=== PATIENT | male | born 1955 | race Caucasian/White ===

== ENCOUNTER 2018-01-11 16:14 | Emergency (ER) | payer OTHER ==
[2018-01-11] MEDS ORDERED: ASPIRIN 81 MG TABLET, CHEWABLE PO ONE (16:15)
[2018-01-11 16:27] LABS: ABSOLUTE BASOPHILS # (AUTO) 0.1 10^3/uL (0.0-0.2); ABSOLUTE EOSINOPHILS # (AUTO) 0.1 10^3/uL (0.0-0.6); ABSOLUTE LYMPHOCYTES (AUTO) 2.2 10^3/uL (0.5-4.7); ABSOLUTE MONOCYTES (AUTO) 1.1 10^3/uL (0.1-1.4); ABSOLUTE NEUT (AUTO) 9.5 10^3/uL (1.7-8.2); BASOPHILS % (AUTO) 0.4 % (0-2); EOSINOPHILS % (AUTO) 0.6 % (0-6); HEMATOCRIT 50.1 % (37.9-51.0); HEMOGLOBIN 17.1 g/dL (13.5-17.0); MEAN CORPUSCULAR HEMOGLOBIN 31.1 pg (27.0-33.4); MEAN CORPUSCULAR HGB CONC 34.1 g/dL (32.0-36.0); MEAN CORPUSCULAR VOLUME 91 fl (80-97); MONOCYTES % (AUTO) 8.4 % (3-13); PLATELET COUNT 311 10^3/uL (150-450); RED BLOOD COUNT 5.49 10^6/uL (4.35-5.55); RED CELL DISTRIBUTION WIDTH 12.7 % (11.5-14.0); SEGMENTED NEUTROPHILS % (AUTO) 73.6 % (42-78); TOTAL CELLS COUNTED % (AUTO) 100 %
[2018-01-11] MEDS ORDERED: DILTIAZEM HCL INJ 25 MG/5 ML VIAL IV ONE (16:32)
--- NOTE | 2018-01-11 16:35 | ER Document Report ---
ED Cardiac - General Chief Complaint: Irregular Pulse Stated Complaint: HEARTRATE ISSUE Time Seen by Provider: 01/11/18 16:22 Mode of Arrival: Medic Information source: Patient, Relative, Emergency Med Personnel TRAVEL OUTSIDE OF THE [place] IN LAST 30 DAYS: No - HPI Patient complains to provider of: Palpitations Use of: denies: Alcohol, Amphetamines, Bath salts, Cocaine, Decongestants Was the onset of pain: Sudden When did pain begin: 1300 Is the pain a: New problem Chest pain location: Substernal Quality of pain: None Severity now: None Associated symptoms: Lightheaded, Palpitations, Weakness. denies: Diaphoresis, Nausea/vomiting, Shortness of breath, Syncope Exacerbated by: Activity Relieved by: Rest Similar symptoms previously: Yes - SEVERAL TIMES, INFREQUENT, RESOLVED WITHIN 15 -20 MIN. Recently seen / treated by doctor: Yes - TODAY, [facility], REFERRED TO [facility] - Related Data Allergies/Adverse Reactions: Penicillins Allergy (Verified 01/11/18 16:25) Past Medical History - General Information source: Patient - Social History Smoking Status: Former Smoker Cigarette use (# per day): No Chew tobacco use (# tins/day): Yes Smoking Education Provided: No Frequency of alcohol use: Rare Drug Abuse: None Lives with: Family Family History: CAD, Hypertension Patient has suicidal ideation: No Patient has homicidal ideation: No - Past Medical History Cardiac Medical History: Reports: Hx Hypertension Denies: Hx Atrial Fibrillation, Hx Coronary Artery Disease, Hx DVT, Hx Heart Attack, Hx Pulmonary Embolism Pulmonary Medical History: Reports: None EENT Medical History: Reports: None Neurological Medical History: Reports: None Endocrine Medical History: Reports: None. Denies: Hx Diabetes Mellitus Type 1, Hx Diabetes Mellitus Type 2 Renal/ Medical History: Reports: None Malignancy Medical History: Reports None GI Medical History: Reports: None Musculoskeltal Medical History: Reports None Psychiatric Medical History: Reports: None Surgical Hx: Negative Review of Systems - Review of Systems Constitutional: See HPI EENT: No symptoms reported Cardiovascular: See HPI Respiratory: No symptoms reported Gastrointestinal: No symptoms reported Genitourinary: No symptoms reported Musculoskeletal: No symptoms reported Skin: No symptoms reported Neurological/Psychological: See HPI Physical Exam - Vital signs Vitals: Pulse Ox 97 01/11/18 16:15 Interpretation: Tachycardic. No: Hypotensive, Tachypneic - General General appearance: Appears well, Alert In distress: None - HEENT Head: Normocephalic Eyes: Normal Conjunctiva: Normal Ears: Normal Nasal: Normal Mouth/Lips: Normal Mucous membranes: Normal Neck: No: Thyromegally - Respiratory Respiratory status: No respiratory distress Breath sounds: Normal - Cardiovascular Rhythm: Irregularly irregular, Tachycardia Heart sounds: Normal auscultation Murmur: No - Abdominal Inspection: Normal Bowel sounds: Normal - Extremities General upper extremity: Normal inspection General lower extremity: Normal inspection - Neurological Neuro grossly intact: Yes Cognition: Normal Orientation: AAOx4 - Psychological Associated symptoms: Normal affect, Normal mood - Skin Skin Temperature: Warm Skin Moisture: Dry Skin Color: Normal Skin Turgor: Elastic Course - Re-evaluation Re-evalutation: 01/11/18 21:13 Patient states he is asymptomatic at present. Cardiac rhythm remains in normal sinus. Vital signs are normal. Patient is stable for transport. Transport team is due to arrive in the next 5 minutes. - Vital Signs Vital signs: Temp Pulse Resp BP Pulse Ox 97.9 F 18 126/99 H 95 01/11/18 16:26 01/11/18 20:59 01/11/18 20:59 01/11/18 20:59 - Laboratory Result Diagrams: 01/11/18 15:50 01/11/18 15:50 Laboratory results interpreted by me: 01/11/18 01/11/18 15:50 15:50 WBC 13.0 H Hgb 17.1 H Absolute Neutrophils 9.5 H Sodium 146.1 H Chloride 109 H BUN 25 H Calcium 10.5 H - Diagnostic Test Radiology reviewed: Image reviewed, Reports reviewed - EKG Interpretation by Me EKG shows normal: ST-T Waves. abnormal: Sinus rhythm Rate: Tachycardia Rhythm: A.Fib - Consults DR. ANDREWS Time consulted: 19:26 Reason for consultation: 01/11/18 19:38 AGREES TO ACCEPT TRANSFER TO [facility]. Discharge - Discharge Clinical Impression: Atrial fibrillation with rapid ventricular response, Non-STEMI (non-ST elevated myocardial infarction) Condition: Good Disposition: [facility]
[2018-01-11 16:42] LABS: ALANINE AMINOTRANSFERASE 28 U/L (21-72); ALBUMIN 4.7 g/dL (3.5-5.0); ALKALINE PHOSPHATASE 86 U/L (38-126); ANION GAP 11 (5-19); ASPARTATE AMINO TRANSFERASE 26 U/L (17-59); BILIRUBIN,DIRECT 0.4 mg/dL (0.0-0.4); BILIRUBIN,TOTAL 1.1 mg/dL (0.2-1.3); BLOOD UREA NITROGEN 25 mg/dL (7-20); CALCIUM 10.5 mg/dL (8.4-10.2); CARBON DIOXIDE 26 mmol/L (22-30); CHLORIDE 109 mmol/L (98-107); CREATINE KINASE 94 U/L (55-170); GLUCOSE 94 mg/dL (75-110); SODIUM 146.1 mmol/L (137-145); TOTAL PROTEIN 7.4 g/dL (6.3-8.2)
--- NOTE | 2018-01-11 16:51 | RADIOLOGY REPORT (SQ) ---
EXAM DESCRIPTION: CHEST SINGLE VIEW COMPLETED DATE/TIME: 01/11/2018 4:35 pm REASON FOR STUDY: bed 2 cp COMPARISON: None. EXAM PARAMETERS: NUMBER OF VIEWS: One view. TECHNIQUE: Single frontal radiographic view of the chest acquired. RADIATION DOSE: NA LIMITATIONS: None. FINDINGS: LUNGS AND PLEURA: No opacities, masses or pneumothorax. No pleural effusion. MEDIASTINUM AND HILAR STRUCTURES: No masses. Contour normal. HEART AND VASCULAR STRUCTURES: Heart normal in size. Normal vasculature. BONES: No acute findings. HARDWARE: None in the chest. OTHER: No other significant finding. IMPRESSION: NO ACUTE RADIOGRAPHIC FINDING IN THE CHEST. TECHNICAL DOCUMENTATION: JOB ID: [id number] [employer]- All Rights Reserved Reading location - IP/workstation name: [email or web address]
[2018-01-11 16:57] LABS: CREATINE KINASE MB 2.75 ng/mL (<4.55); TROPONIN I 0.288 ng/mL
[2018-01-11] MEDS ORDERED: NORMAL SALINE 1000 ML IV ONE (17:27)
[2018-01-11] MEDS ORDERED: DILTIAZEM HCL/D5W 125 MG/125 ML RTUINJ IV PRN (17:29)
[2018-01-11] MEDS ORDERED: ENOXAPARIN SODIUM INJ 80 MG/0.8 ML DISP.SYRIN SUBCUT SCH (19:00)
--- NOTE | 2018-01-11 19:17 | RADIOLOGY REPORT (SQ) ---
EXAM DESCRIPTION: CTA CHEST COMPLETED DATE/TIME: 01/11/2018 7:06 pm REASON FOR STUDY: NEW ONSET A. FIB., R/O P.E. COMPARISON: 01/11/2018 TECHNIQUE: CT scan of the chest performed using helical scanning technique with dynamic intravenous contrast injection. Images reviewed with lung, soft tissue and bone windows. Reconstructed coronal and sagittal MPR images reviewed. Additional 3 dimensional post-processing performed to develop Maximal Intensity Projection images (VT P). All images stored on PACS. All CT scanners at this facility use dose modulation, iterative reconstruction, and/or weight based d osing when appropriate to reduce radiation dose to as low as reasonably achievable (ALARA). [facility]: Dose Right [facility]: CareDose [facility]: Dose Right [facility]: Teradose 4D [facility]: Genecure CONTRAST TYPE AND DOSE: contrast/concentration: Isovue 370.00 mg/ml; Total Contrast Delivered: 71.0 ml; Total Saline Delivered: 87.1 ml Contrast bolus optimized for the pulmonary arteries. Not diagnostic for the aorta. RENAL FUNCTION: BUN 25; creatinine 0.97 RADIATION DOSE: CT Rad equipment meets quality standard of care and radiation dose reduction techniq ues were employed. CTDIvol: 14.5 - 19.8 mGy. DLP: 553 mGy-cm. . LIMITATIONS: None. FINDINGS: LUNGS AND PLEURA: No masses, infiltrates, pneumothorax. No pleural effusions, calcificati ons. AORTA AND GREAT VESSELS: Ectatic ascending aorta. Contrast bolus not optimized for the aorta. HEART: No pericardial effusion. No significant coronary artery calcifications. PULMONARY ARTERIES: No emboli visualized in the main pulmonary arteries or the segmental branches. HILAR AND MEDIASTINAL STRUCTURES: No identified masses or abnormal nodes. HARDWARE: None in the chest. UPPER ABDOMEN: Limited exam. Partially imaged exophytic cyst, left kidney. THYROID AND OTHER SOFT TISSUES: No masses. No adenopathy. BONES: No acute or significant finding. 3D MIPS: Confirm above findings. OTHER: No other significant finding. IMPRESSION: NORMAL CTA OF THE CHEST. NO PULMONARY EMBOLI. COMMENT: Quality ID # [id number]: Final reports with documentation of one or more dose reduction techniques (e.g., Automated exposure control, adjustment of the mA and/or kV according to patient size, use of iterative reconstruction technique) TECHNICAL DOCUMENTATION: JOB ID: [id number] [employer]- All Rights Reserved Reading location - IP/workstation name: [email or web address]
--- NOTE | 2018-01-11 19:23 | EKG REPORT ---
SEVERITY:- ABNORMAL ECG - ATRIAL FIBRILLATION, V-RATE 90-156 MULTIFORM VENTRICULAR PREMATURE COMPLEXES : Confirmed by: Minda Berrios 11-Jan-2018 19:22:08
[2018-01-11] MEDS ORDERED: ATORVASTATIN CALCIUM 20 MG TABLET PO ONE (19:29)
[2018-01-11] MEDS ORDERED: METOPROLOL TARTRATE 25 MG TABLET PO ONE (19:29)
[2018-01-11 21:18] VITALS: BP 123/87
--- NOTE | 2018-01-12 10:49 | EKG REPORT ---
SEVERITY:- NORMAL ECG - SINUS RHYTHM : Confirmed by: Minda Berrios 12-Jan-2018 10:48:44
== END 2018-01-11 21:25 | disposition short-term general hospital (02) ==
LOC: ER 16:14
DX: I48.91 Unspecified atrial fibrillation (principal); I21.4 Non-ST elevation (NSTEMI) myocardial infarction; I10 Essential (primary) hypertension; R42 Dizziness and giddiness; R53.1 Weakness; Z88.0 Allergy status to penicillin; Z87.891 Personal history of nicotine dependence; Z82.49 Family history of ischemic heart disease and other diseases of the circulatory system
CPT/HCPCS: 93005; 96376; 99285; 96372; 96365; 96366; 36415; 82553; 82550; 85025; 80053; 84484; 71045; 71275; 93010; J3490 ×2; J7030; J1650

== ENCOUNTER 2019-07-05 08:46 | Emergency (ER) | payer OTHER ==
--- NOTE | 2019-07-05 09:21 | ER Document Report ---
ED GI/ - General Chief Complaint: Urinary Problem Stated Complaint: BLOOD IN URINE Time Seen by Provider: 07/05/19 09:02 Mode of Arrival: Ambulatory Information source: Patient Notes: History of Present Illness Time: Chief Complaint: Flank pain 63 years old male presents today with right flank pain as well as hematuria x3 days. Denies any dysuria frequency urgency. Denies any fever chills or other constitutional symptoms denies any weaknesses. He is on Xarelto for atrial fibrillation, he stopped taking them for 2 days. Initial urine is bloody subsequent urine clears up. History obtained from patient Symptoms began: Today Onset: Gradual Timing: Intermittent Quality: ``pain Intensity: Severe Location: Flank Migration: None Radiation: None Mechanism: None Aggravating factors: None Relieving factors: None Denies significant traumatic injury Denies weakness, numbness, incontinence Denies IV drug use Denies trouble with urination Review of Systems All other systems negative as reviewed. CONSTITUTIONAL No fever. EYES No eye pain. ENT No URI symptoms, No sore throat, No ear pain. CARDIOVASCULAR No chest pain, No palpitations, No edema. RESPIRATORY No Cough, No SOB, No wheezing. GASTROINTESTINAL No abdominal pain, No diarrhea, No vomiting, No constipation, No melena, No rectal bleeding. GENITOURINARY No UTI symptoms, No bleeding. MUSCULOSKELETAL + flank pain. SKIN No Rash. NEUROLOGIC No Headache, No recent seizures, No paralysis, No parathesias. Physical Exam CONSTITUTIONAL Vital signs reviewed, comfortable, Alert and oriented X 3. HEAD Atraumatic, Normal cephalic. EYES No discharge from eyes, Sclera are not injected, Extraocular muscles intact, Conjunctiva are normal. ENT Ears normal to inspection, Nose examination normal, Oropharynx normal, Mucous membranes pink, moist, normal in color. NECK Normal ROM, No jugular venous distention, No meningeal signs, No carotid bruit. RESPIRATORY/CHEST Chest is non-tender, Breath sounds normal, No respiratory distress. CARDIOVASCULAR RRR, Heart sounds normal. ABDOMEN Abdomen is non-tender, No masses, Bowel sounds normal, No distension, No peritoneal signs. BACK Normal inspection. no focal bony tenderness, no CVA tenderness, no soft tissue tenderness, negative straight leg test bilaterally, bilateral 2+ knee deep tendon reflexes. UPPER EXTREMITY Inspection normal, No cyanosis/clubbing/edema, 2+ radial pulses. LOWER EXTREMITY Inspection normal, No cyanosis/clubbing/edema, 2+ femoral pulses. NEURO Motor exam normal, Sensory exam normal. SKIN Skin is warm and dry, No rash. PSYCHIATRIC Normal affect. TRAVEL OUTSIDE OF THE [place] IN LAST 30 DAYS: No - HPI Notes: 07/05/19 09:20 Dictated - Related Data Allergies/Adverse Reactions: Penicillins Allergy (Verified 07/05/19 08:59) Past Medical History - Social History Smoking Status: Former Smoker Chew tobacco use (# tins/day): Yes Frequency of alcohol use: Social Drug Abuse: None Lives with: Family Family History: CAD, Hypertension Patient has suicidal ideation: No Patient has homicidal ideation: No - Past Medical History Cardiac Medical History: Reports: Hx Atrial Fibrillation, Hx Hypertension Denies: Hx Coronary Artery Disease, Hx DVT, Hx Heart Attack, Hx Pulmonary Embolism Endocrine Medical History: Denies: Hx Diabetes Mellitus Type 1, Hx Diabetes Mellitus Type 2 Renal/ Medical History: Reports: Hx Kidney Stones. Denies: Hx Peritoneal Dialysis Review of Systems - Review of Systems Notes: Dictated Physical Exam - Vital signs Vitals: Temp Pulse Resp BP Pulse Ox 97.5 F 58 L 16 135/90 H 100 07/05/19 08:51 07/05/19 08:51 07/05/19 08:51 07/05/19 08:51 07/05/19 08:51 - Notes Notes: Dictated Course - Vital Signs Vital signs: Temp Pulse Resp BP Pulse Ox 97.5 F 58 L 16 135/90 H 100 07/05/19 08:51 07/05/19 08:51 07/05/19 08:51 07/05/19 08:51 07/05/19 08:51 - Laboratory Result Diagrams: 07/05/19 09:45 07/05/19 09:45 Laboratory results interpreted by me: 07/05/19 09:45 Urine Blood LARGE H - Diagnostic Test Radiology reviewed: Reports reviewed - CT of the abdomen pelvis without contrast shows multiple intrarenal stones on both sides. With prostate enlargement. Discharge - Discharge Clinical Impression: Renal calculus, bilateral, Enlarged prostate Hematuria Qualifiers: Hematuria type: gross Qualified Code(s): R31.0 - Gross hematuria Condition: Fair Disposition: HOME, SELF-CARE Instructions: Hematuria ([facility]), Kidney Stone ([facility]) Prescriptions: Tamsulosin HCl [Flomax 0.4 mg Cap.sr] 0.4 mg PO DAILY #30 cap.sr.24h
[2019-07-05 09:56] LABS: ABSOLUTE EOSINOPHILS # (AUTO) 0.1 10^3/uL (0.0-0.6); ABSOLUTE LYMPHOCYTES (AUTO) 1.2 10^3/uL (0.5-4.7); ABSOLUTE MONOCYTES (AUTO) 0.5 10^3/uL (0.1-1.4); ABSOLUTE NEUT (AUTO) 4.7 10^3/uL (1.7-8.2); BASOPHILS % (AUTO) 0.7 % (0-2); EOSINOPHILS % (AUTO) 1.4 % (0-6); HEMATOCRIT 48.1 % (37.9-51.0); HEMOGLOBIN 16.4 g/dL (13.5-17.0); MEAN CORPUSCULAR HEMOGLOBIN 31.5 pg (27.0-33.4); MEAN CORPUSCULAR HGB CONC 34.2 g/dL (32.0-36.0); MEAN CORPUSCULAR VOLUME 92 fl (80-97); MONOCYTES % (AUTO) 8.1 % (3-13); PLATELET COUNT 254 10^3/uL (150-450); RED BLOOD COUNT 5.22 10^6/uL (4.35-5.55); RED CELL DISTRIBUTION WIDTH 13.1 % (11.5-14.0); SEGMENTED NEUTROPHILS % (AUTO) 70.8 % (42-78); TOTAL CELLS COUNTED % (AUTO) 100 %; WHITE BLOOD COUNT 6.6 10^3/uL (4.0-10.5)
--- NOTE | 2019-07-05 09:56 | RADIOLOGY REPORT (SQ) ---
EXAM DESCRIPTION: CT ABD/PELVIS NO ORAL OR IV COMPLETED DATE/TIME: 07/05/2019 9:35 am REASON FOR STUDY: Renal stone protocol COMPARISON: None. TECHNIQUE: CT scan of the abdomen and pelvis performed without intravenous or oral contrast. Images reviewed with lung, soft tissue, and bone windows. Reconstructed coronal and sagittal MPR images revi ewed. All images stored on PACS. All CT scanners at this facility use dose modulation, iterative reconstruction, and/or weight based d osing when appropriate to reduce radiation dose to as low as reasonably achievable (ALARA). [facility]: Dose Right [facility]: CareDose [facility]: Dose Right [facility]: Teradose 4D [facility]: Smart [employer] RADIATION DOSE: CT Rad equipment meets quality standard of care and radiation dose reduction techniq ues were employed. CTDIvol: 6.6 mGy. DLP: 363 mGy-cm.mGy. LIMITATIONS: None. FINDINGS: LOWER CHEST: No acute findings. NON-CONTRASTED LIVER, SPLEEN, ADRENALS: Evaluation is limited due to the absence of intravenous contr ast. The liver morphology is non cirrhotic. There is no CT evidence of hepatic steatosis. The sple en is normal in size. There is no abnormality of the adrenal glands. PANCREAS: No acute abnormality of the pancreas. GALLBLADDER: No abnormality that is apparent on CT. RIGHT KIDNEY AND URETER: There is a 4 x 3 mm calculus within the right renal pelvis; there is no asso ciated hydronephrosis, hydroureter or ureterolithiasis. Evaluation of the hypodense lesions within th e posterior cortex of the upper and lower poles is limited due to the absence of intravenous contrast but based on the internal attenuation of the lesions (less than 10 Hounsfield units) the favored dif ferential considerations are simple renal cysts. LEFT KIDNEY AND URETER: There are several caliceal calculi that measure up to 3 mm in diameter; ther e is no associated hydronephrosis, hydroureter or ureterolithiasis. There are also several cortical- based hypodense lesions that measure up to 3.3 x 2.3 cm ; evaluation of these lesions is limited due to the absence of intravenous contrast but as stated above based on the internal attenuation of the l esions the favored differential considerations are simple renal cysts. AORTA AND RETROPERITONEUM: No aneurysmal dilatation of the abdominal aorta or retroperitoneal adenopa thy. BOWEL AND PERITONEAL CAVITY: No evidence of obstruction, bowel wall thickening or pericolonic/ perien teric inflammation. No mesenteric adenopathy, mesenteric mass or free intraperitoneal fluid/gas. APPENDIX: Normal. PELVIS, BLADDER, AND ABDOMINAL WALL:The prostate gland is enlarged and heterogeneous and contains num erous calcifications. There is no pelvic adenopathy or free fluid. The urinary bladder is distended and normal in appearance ; there is no urinary bladder calculus. There is a miniscule fat containing umbilical hernia BONES: No acute findings. OTHER: No other finding. IMPRESSION: 1. 4 x 3 mm calculus in the right renal pelvis without associated hydronephrosis, hydro ureter or ureterolithiasis. 2. Several caliceal calculi in the left kidney that measure up to 3 mm in diameter without associate d hydronephrosis, hydroureter or ureterolithiasis. 3. Prostatomegaly. COMMENT: Quality ID # [id number]: Final reports with documentation of one or more dose reduction techniques (e.g., Automated exposure control, adjustment of the mA and/or kV according to patient size, use of iterative reconstruction technique) TECHNICAL DOCUMENTATION: JOB ID: [id number] [employer]- All Rights Reserved Reading location - IP/workstation name: [email or web address]
[2019-07-05 10:05] LABS: APPEARANCE,URINE CLEAR; BILIRUBIN,URINE NEGATIVE (NEGATIVE); COLOR,URINE STRAW; GLUCOSE, URINE NEGATIVE (NEGATIVE); KETONES,URINE NEGATIVE (NEGATIVE); LEUKOCYTE ESTERASE,URINE NEGATIVE (NEGATIVE); NITRITE,URINE NEGATIVE (NEGATIVE); PROTEIN,URINE NEGATIVE (NEGATIVE); URINE SPECIFIC GRAVITY 1.002; UROBILINOGEN,URINE NEGATIVE mg/dL (<2.0)
[2019-07-05 10:22] LABS: ALBUMIN 4.5 g/dL (3.5-5.0); ALKALINE PHOSPHATASE 70 U/L (38-126); ANION GAP 7 (5-19); ASPARTATE AMINO TRANSFERASE 26 U/L (17-59); BILIRUBIN,DIRECT 0.1 mg/dL (0.0-0.4); BILIRUBIN,TOTAL 1.3 mg/dL (0.2-1.3); BLOOD UREA NITROGEN 16 mg/dL (7-20); CALCIUM 9.5 mg/dL (8.4-10.2); CARBON DIOXIDE 30 mmol/L (22-30); CHLORIDE 102 mmol/L (98-107); GLUCOSE 104 mg/dL (75-110); POTASSIUM 4.1 mmol/L (3.6-5.0); TOTAL PROTEIN 7.3 g/dL (6.3-8.2)
[2019-07-05 12:17] VITALS: BP 126/81
== END 2019-07-05 12:15 | disposition home or self-care (01) ==
LOC: ER 08:46
DX: N20.0 Calculus of kidney (principal); N40.0 Benign prostatic hyperplasia without lower urinary tract symptoms; R31.0 Gross hematuria; R10.9 Unspecified abdominal pain; I48.91 Unspecified atrial fibrillation; I10 Essential (primary) hypertension; Z88.0 Allergy status to penicillin
CPT/HCPCS: 36415; 74176; 80053; 81001; 85025; 99284

== ENCOUNTER 2020-10-17 19:24 | Emergency (ER) | payer OTHER, MEDICARE ==
[2020-10-17 19:54] LABS: ABSOLUTE EOSINOPHILS # (AUTO) 0.1 10^3/uL (0.0-0.6); ABSOLUTE LYMPHOCYTES (AUTO) 1.6 10^3/uL (0.5-4.7); ABSOLUTE MONOCYTES (AUTO) 0.7 10^3/uL (0.1-1.4); ABSOLUTE NEUT (AUTO) 5.2 10^3/uL (1.7-8.2); BASOPHILS % (AUTO) 0.4 % (0-2); EOSINOPHILS % (AUTO) 1.3 % (0-6); HEMATOCRIT 45.6 % (37.9-51.0); HEMOGLOBIN 15.7 g/dL (13.5-17.0); LYMPHOCYTES % (AUTO) 21.3 % (13-45); MEAN CORPUSCULAR HEMOGLOBIN 31.4 pg (27.0-33.4); MEAN CORPUSCULAR HGB CONC 34.4 g/dL (32.0-36.0); MEAN CORPUSCULAR VOLUME 91 fl (80-97); MONOCYTES % (AUTO) 8.9 % (3-13); PLATELET COUNT 243 10^3/uL (150-450); RED BLOOD COUNT 4.99 10^6/uL (4.35-5.55); RED CELL DISTRIBUTION WIDTH 12.6 % (11.5-14.0); SEGMENTED NEUTROPHILS % (AUTO) 68.1 % (42-78); TOTAL CELLS COUNTED % (AUTO) 100 %; WHITE BLOOD COUNT 7.6 10^3/uL (4.0-10.5)
--- NOTE | 2020-10-17 19:56 | RADIOLOGY REPORT (SQ) ---
EXAM DESCRIPTION: CHEST SINGLE VIEW IMAGES COMPLETED DATE/TIME: 10/17/2020 7:46 pm REASON FOR STUDY: chest pain, SVT COMPARISON: None. EXAM PARAMETERS: NUMBER OF VIEWS: One view. TECHNIQUE: Single frontal radiographic view of the chest acquired. RADIATION DOSE: NA LIMITATIONS: None. FINDINGS: LUNGS AND PLEURA: No opacities, masses or pneumothorax. No pleural effusion. MEDIASTINUM AND HILAR STRUCTURES: No masses. Contour normal. HEART AND VASCULAR STRUCTURES: Heart normal in size. Normal vasculature. BONES: No acute findings. HARDWARE: None in the chest. OTHER: No other significant finding. IMPRESSION: NO ACUTE RADIOGRAPHIC FINDING IN THE CHEST. TECHNICAL DOCUMENTATION: JOB ID: [id number] [employer]- All Rights Reserved Reading location - IP/workstation name: [email or web address]
[2020-10-17 20:01] LABS: ALBUMIN 3.9 g/dL (3.5-5.0); ALKALINE PHOSPHATASE 76 U/L (38-126); ASPARTATE AMINO TRANSFERASE 27 U/L (17-59); BILIRUBIN,DIRECT 0.2 mg/dL (0.0-0.4); BILIRUBIN,TOTAL 0.9 mg/dL (0.2-1.3); BLOOD UREA NITROGEN 20 mg/dL (7-20); CARBON DIOXIDE 29 mmol/L (22-30); CHLORIDE 106 mmol/L (98-107); CREATINE KINASE 48 U/L (55-170); GLUCOSE 121 mg/dL (75-110); POTASSIUM 3.7 mmol/L (3.6-5.0); TOTAL PROTEIN 6.4 g/dL (6.3-8.2)
[2020-10-17 20:08] LABS: ANION GAP 4 (5-19)
[2020-10-17 20:13] LABS: CREATINE KINASE MB 0.58 ng/mL (<4.55)
[2020-10-17 20:14] LABS: TROPONIN I < 0.012 ng/mL
--- NOTE | 2020-10-17 22:11 | ER Document Report ---
ED Cardiac - General Chief Complaint: Chest Pain Stated Complaint: WEAKNESS Time Seen by Provider: 10/17/20 20:54 Primary Care Provider: GEORGE,TORRIE [Primary Care Provider] - Follow up as needed TRAVEL OUTSIDE OF THE [place] IN LAST 30 DAYS: No - HPI Notes: Patient is a 65-year-old male with a past medical history of atrial fibrillation on lisinopril and metoprolol who presents with an episode of SVT. Patient states that he had 6 cups of coffee today which is more than normal. He also had a large sweet tea today which is more caffeine than he normally drinks. Patient states that around 4, he began feeling burning in his chest. They called EMS and he was found to have a heart rate of 220 and was in SVT. Patient was given 6 mg of adenosine and converted. He has been in sinus rhythm since he was given the medicine. His vitals are stable. He is denying any complaints at this time. Patient does have a loop recorder and his recordings get sent to [facility] cardiology. He has an appointment with his claim analyst on Thursday. - Related Data Allergies/Adverse Reactions: Penicillins Allergy (Verified 07/05/19 08:59) Home Medications: Lisinopril Past Medical History - General Information source: Patient - Social History Smoking Status: Former Smoker Family History: CAD, Hypertension - Past Medical History Cardiac Medical History: Reports: Hx Atrial Fibrillation, Hx Hypertension Denies: Hx Coronary Artery Disease, Hx DVT, Hx Heart Attack, Hx Pulmonary Embolism Endocrine Medical History: Denies: Hx Diabetes Mellitus Type 1, Hx Diabetes Mellitus Type 2 Renal/ Medical History: Reports: Hx Kidney Stones. Denies: Hx Peritoneal Dialysis Review of Systems - Review of Systems Notes: CONSTITUTIONAL: No fever, fatigue or weight loss. SKIN: No rash. HENT: No congestion, ear pain, or sore throat. CARDIOVASCULAR: No chest pain or edema. RESPIRATORY: No cough, shortness of breath, congestion, or wheezing. GASTROINTESTINAL: No abdominal pain, nausea, vomiting, bloody stools or diarrhea. MUSCULOSKELETAL: No joint pain or swelling. NEUROLOGIC: No seizures. No headache, focal weakness or sensory changes. HEMATOLOGIC: No unusual bruising or bleeding. PSYCHIATRIC: No depression or anxiety. Physical Exam - Vital signs Vitals: Temp Resp BP Pulse Ox 98.1 F 14 133/81 H 97 10/17/20 19:28 10/17/20 19:28 10/17/20 19:28 10/17/20 19:28 - General General appearance: Appears well In distress: None Notes: VITAL SIGNS: Within normal limits. GENERAL: No acute distress, non-toxic appearance. HEAD: Normal with no signs of head trauma. EYES: Conjunctiva normal, no discharge. EARS: Hearing grossly intact. NOSE: Normal. NECK: Normal range of motion, no tenderness, supple, no lymphadenopathy, No adenopathy, no JVD. CHEST: Clear breath sounds bilaterally. No wheezes, rales, or rhonchi. CARDIAC: Regular rate and rhythm. VASCULAR: No Edema. Radial pulses normal and equal. ABDOMEN: Normal and soft with no tenderness, no masses or pulsatile masses. LYMPATHTIC: No lymphadenopathy noted. MUSCULOSKELETAL: Good range of motion of all major joints. Extremities without clubbing, cyanosis or edema. NEUROLOGICAL: Alert and oriented x 3. No focal sensory or strength deficits. Speech normal. Follows commands appropriately. PSYCHIATRIC: Normal Affect, judgement and mood. SKIN: Normal appearance with no rashes or lesions. Course - Re-evaluation Re-evalutation: 10/17/20 22:17 Patient has no chest pain. He is resting comfortably. His vitals have been normal. He is in sinus rhythm with a normal heart rate. I discussed with Dr. Shepherd from cardiology who recommended just obtaining a second troponin. He states he can be discharged home. Patient has follow-up with the claim analyst Thursday in the office. Patient had a second troponin that was elevated. I called back Dr. Shepherd who stated this was likely from the fast SVT he had. He stated that as long as he has no chest pain, he can be discharged home to follow-up with his claim analyst on Thursday. I discussed all this with the patient and his son. Patient states he feels great and has no pain. He states he would like to be discharged home. I believe this is reasonable. Patient is in sinus rhythm. He will follow up with his claim analyst. Patient was given strict return precautions. I have counseled him on avoiding caffeine. 10/18/20 05:35 - Vital Signs Vital signs: Temp Pulse Resp BP Pulse Ox 98.1 F 73 16 127/84 H 97 10/18/20 02:32 10/18/20 02:32 10/18/20 02:32 10/18/20 02:32 10/18/20 02:32 - Laboratory Results Result Diagrams: 10/17/20 19:34 10/17/20 19:34 Laboratory Results Interpreted: 10/17/20 19:34 Anion Gap 4 L Glucose 121 H Creatine Kinase 48 L Critical Laboratory Results Reviewed: No Critical Results - Radiology Results Critical Radiology Results Reviewed: No Critical Results - EKG Interpretation by Me EKG shows normal: Sinus rhythm Rate: Normal Rhythm: NSR When compared to previous EKG there are: No significant change Additional EKG results interpreted by me: 10/17/20 22:12 Sinus rhythm at a rate of 97. QTc 422. No acute ST changes. EKG is similar to previous. Discharge - Discharge Clinical Impression: SVT (supraventricular tachycardia) Condition: Stable Disposition: HOME, SELF-CARE Instructions: Paroxysmal Supraventricular Tachycardia ([facility]) Additional Instructions: You had an episode of supraventricular tachycardia today (SVT). This has resolved. Please follow-up with your claim analyst this week. Please avoid drinking a large amount of caffeine. Please make sure you are staying hydrated. Return to the ER immediately for any return of symptoms. [facility]errals: [facility] [[facility] Provider] - Follow up as needed
--- NOTE | 2020-10-17 23:46 | EKG REPORT ---
SEVERITY:- BORDERLINE ECG - SINUS RHYTHM BORDERLINE T ABNORMALITIES, INFERIOR LEADS : Confirmed by: Minda Berrios 17-Oct-2020 23:45:54
[2020-10-18] MEDS ORDERED: ASPIRIN 325 MG TABLET PO ONE (01:31)
[2020-10-18 02:11] VITALS: BP 127/84
== END 2020-10-18 02:32 | disposition home or self-care (01) ==
LOC: ER 19:24
DX: I47.1 Supraventricular tachycardia (principal); I10 Essential (primary) hypertension; I48.91 Unspecified atrial fibrillation; Z79.899 Other long term (current) drug therapy; Z87.891 Personal history of nicotine dependence; Z88.0 Allergy status to penicillin; Z82.49 Family history of ischemic heart disease and other diseases of the circulatory system
CPT/HCPCS: 36415; 71045; 80053; 82550; 82553; 84484; 85025; 93005; 93010; 99285